=== PATIENT | female | born 1980 | race African-American/Black ===

== ENCOUNTER 2020-05-20 08:36 | Emergency (ER) | payer MEDICAID ==
[~2020-05-20] VITALS: Ht 162.6 cm; Wt 57.0 kg
[2020-05-20] MEDS ORDERED: SODIUM CHLORIDE 0.9% 1,000 ML IV ONE (09:30)
[2020-05-20 09:57] LABS: BASOPHILS % 0.5 % (0.0-2.0); EOSINOPHILS % 0.3 % (0.0-5.0); HEMATOCRIT. 42.5 % (36.0-48.0); LYMPHOCYTES % 21.7 % (20.0-50.0); MEAN CORPUSCULAR VOLUME 81.9 fL (81.0-99.0); MEAN PLATELET VOLUME 7.9 fl (7.4-10.4); MONOCYTES % 8.5 % (2.0-8.0); PLATELET 253 x1000/uL (130-400); RED BLOOD CELL COUNT 5.19 mill/uL (4.2-5.4); RED CELL DISTRIBUTION WIDTH 12.9 % (11.6-14.6)
[2020-05-20 10:04] LABS: CHLORIDE 104 mEq/L (98-107)
[2020-05-20 10:07] LABS: INR 1.1; PROTHROMBIN TIME 11.6 sec (9.6-11.0)
[2020-05-20 10:26] LABS: HCG SCREEN NEGATIVE
[2020-05-20] MEDS ORDERED: LORAZEPAM 2MG/ML CPJ IV NR (10:45)
[2020-05-20 11:22] LABS: CLARITY URINE CLEAR (CLEAR); COLOR URINE YELLOW (YELLOW); KETONES URINE 2+ (NEGATIVE); LEUKOCYTE ESTERASE URINE NEGATIVE (NEGATIVE); NITRITE URINE NEGATIVE (NEGATIVE); OCCULT BLOOD URINE 2+ (NEGATIVE); PROTEIN URINE NEGATIVE (NEGATIVE); SPECIFIC GRAVITY URINE 1.004 (1.005-1.030); UROBILINOGEN URINE 0.2 E.U./dL (0.2-1.0)
[2020-05-20 13:00] VITALS: BP 112/66
== END 2020-05-20 13:21 | disposition home or self-care (01) ==
LOC: EDSEX 08:36 → ER 08:57
DX: F41.9 Anxiety disorder, unspecified (principal); F43.0 Acute stress reaction; R00.0 Tachycardia, unspecified
CPT/HCPCS: 36415; 71045; 80053; 81003; 81025; 83735; 84443; 84484; 84703; 85025; 85610; 93005; 96361; 96374; 99285; J2060; J7030